=== PATIENT | male | born 1965 | race Caucasian/White ===

== ENCOUNTER 2018-07-15 02:04 | Day surgery (SDC) | payer OTHER ==
[2018-07-15] VITALS (7 sets, daily range): BP systolic 83–120; BP diastolic 50–83
[~2018-07-15] VITALS: Ht 175.3 cm; Wt 88.5 kg
[~2018-07-15 02:04] MED LIST: FAMO20TA28 PO
[2018-07-15] MEDS ORDERED: PROPOFOL EMUL(*) 10MG/ML 20 ML 40 ML ONE (07:23)
--- NOTE | 2018-07-15 11:27 | NUR ---
1100 1 IV ATTEMPT EMBROIDERY OPERATOR, LARRY, INFILTRATED. WHILE RN WAS EDUCATING STUDENT ON LOCATING ALTERNATIVE SITES PT BECAME PALE AND DIAPHORETIC. ICE PACK PLACED ON CHEST, COOL COMPRESSES TO FOREHEAD AND NAPE OF NECK. PT STATES HE FEELS SIMILAR TO WHEN HE HAS LOW BLOOD SUGAR. FBS TESTED, 92, SX RESOLVING. AT BEDSIDE. IV SUCCESSFUL INSERTED BY MYSELF.
[2018-07-15] MEDS ORDERED: PROPOFOL EMUL(*) 10MG/ML 20 ML 20 ML ONE ×4 (12:11→12:53)
[2018-07-15] MEDS ORDERED: LIDOCAINE/SOD BICARB 8.4% SYR ID ONE (12:25)
[2018-07-15] MEDS ORDERED: NORMOSOL R SOLN(*) 1000 ML BAG 1,000 ML IV PRN (12:25)
--- NOTE | 2018-07-15 13:13 | NUR ---
1305 SBAR REPORT WAS RECEIVED FROM DR. MAI AND Madeline WATTS. PATIENT IS BREATHING SPONTANEOUSLY LUNGS ARE CLEAR. HE IS ON 3 LITERS HIGH FLOW O2. BOWEL SOUNDS ARE HYPERACTIVE. IS IN THE ROOM. PATIENT CONTINUES TO SLEEP AT THIS TIME. UNABLE TO ASSESS PAIN OR NAUSEA. 1315 PATIENT CONTINUES TO REST AT THIS TIME
--- NOTE | 2018-07-15 13:52 | NUR ---
1345 PATIENT WAS AWAKE WHEN ENTERING ROOM. HE WAS MOVED TO ROOM TO AIR 1350 PATIENT BEGAN EATING JELLO AND DRINKING WATER
--- NOTE | 2018-07-15 14:25 | NUR ---
1410 WENT OVER DC INSTRUCTIONS WITH PATIENT AND . THEY VERBALIZED UNDERSTANDING 1414 BEGAN DOING ORTHOSTATICS WITH PATIENT. HE DENIES ANY DIZZINESS OR LIGHTHEADEDNESS 1415 PATIENT BEGAN STANDING. HE WAS STABLE ON HIS FEET 1416 PATIENT BEGAN GETTING DRESSED 1420 IV WAS DC'D WITH CATH INTACT. 1425 PATIENT WAS DC'D AND WAS AMBULATORY ON DISCHARGE. HE WAS ACCOMPANIED BY HIS . LUNGS ARE CLEAR. BOWEL SOUNDS ARE ACTIVE. HE DENIES ANY PAIN OR NAUSEA. SEE DISCHARGE ASSESSMENT.
== END 2018-07-15 14:25 | disposition home or self-care (01) ==
LOC: OR 02:04
PROVIDERS: ATTEND Family Medicine
DX: Z12.11 Encounter for screening for malignant neoplasm of colon (principal); K63.5 Polyp of colon
CPT/HCPCS: 00811; 36416; 45380; 82948; 88305; J2704